=== PATIENT | female | born 1980 | race African-American/Black ===

== ENCOUNTER 2016-09-28 08:23 | Emergency (ER) | payer OTHER ==
[~2016-09-28 08:23] MED LIST: ONDA4TAB10 PO
--- NOTE | 2016-09-28 08:38 | EKG ---
[address] [address] Test Date: 2016-09-28 Test Time: 08:36:05 Pat Name: ALMA FRANCO Department: Room: Gender: F Rod Hanger: [place] : 1980 Requested By: MARIANA VASQUEZ Order Number: [id number] Reading MD: Measurements Intervals [place] Rate: 56 P: 62 NM: 140 QRS: 71 QRSD: 78 T: 66 QT: 396 QTc: 384 Interpretive Statements SINUS RHYTHM QRS(T) CONTOUR ABNORMALITY CONSIDER ANTEROLATERAL MYOCARDIAL DAMAGE POSSIBLY ABNORMAL ECG RI6.01 Unconfirmed report No previous ECG available for comparison
[2016-09-28 09:19] LABS: BASO % 1 % (0-3); EOS # 0.1 x10^3/uL (0.0-0.7); EOS % 1 % (0-3); HEMATOCRIT 28.3 % (36.0-47.0); HEMOGLOBIN 9.1 g/dL (12.0-15.5); LYMPH % 26 % (24-48); MEAN CORPUSCULAR HEMOGLOBIN 27 pg (25-35); MEAN CORPUSCULAR HGB CONC 32 g/dL (31-37); MEAN CORPUSCULAR VOLUME 85 fL (79-100); MONO % 13 % (0-9); NEUT # 4.6 x10^3uL (1.8-7.7); NEUT % 59 % (31-73); PLATELET COUNT 222 x10^3/uL (140-400); RED BLOOD COUNT 3.32 x10^6/uL (3.50-5.40); RED CELL DISTRIBUTION WIDTH 16.1 % (11.5-14.5); WHITE BLOOD COUNT 7.8 x10^3/uL (4.0-11.0)
--- NOTE | 2016-09-28 09:22 | ED.ADGEN ---
Past History Past Medical History: Other Past Surgical History: Other Alcohol Use: Rarely Drug Use: None Adult General HPI HPI Patient is a 35-year-old female presents emergency Department 1 week status post section. Currently nursing. She presents emergency department in certain that her resting heart rate is been in the 50s. She states that her resting heart rate is usually in the 70s and she is concerned that something may be wrong. She is tearful at the time of my interview. She denies any chest pain or shortness of air. The patient does report that she still has bilateral lower extremity swelling from her . She is to follow-up with her OB doctor next week but was called in today concerned about her heart stay referred her to the emergency department. Review of Systems Review of Systems Constitutional: Denies fever or chills [] Eyes: Denies change in visual acuity, redness, or eye pain [] HENT: Denies nasal congestion or sore throat [] Respiratory: Denies cough or shortness of breath [] Cardiovascular: No additional information not addressed in HPI [] GI: Denies abdominal pain, nausea, vomiting, bloody stools or diarrhea [] : Denies dysuria or hematuria [] Musculoskeletal: Denies back pain or joint pain [] Integument: Denies rash or skin lesions [] Neurologic: Denies headache, focal weakness or sensory changes [] Endocrine: Denies polyuria or polydipsia [] Allergies Allergies Allergies Coded Allergies Type Severity Reaction Last Updated Verified No Known Drug Allergies 05/08/16 No Physical Exam Physical Exam Constitutional: Well developed, well nourished, no acute distress, non-toxic appearance. [] HENT: Normocephalic, atraumatic, bilateral external ears normal, oropharynx moist, no oral exudates, nose normal. [] Eyes: PERRLA, EOMI, conjunctiva normal, no discharge. [] Neck: Normal range of motion, no tenderness, supple, no stridor. [] Cardiovascular:Heart rate regular rhythm, no murmur [] Lungs & Thorax: Bilateral breath sounds clear to auscultation [] Abdomen: Bowel sounds normal, soft, no tenderness, no masses, no pulsatile masses. [] Skin: Warm, dry, no erythema, no rash. [] Back: No tenderness, no CVA tenderness. [] Extremities: No tenderness, no cyanosis, no clubbing, ROM intact, no edema. [] Neurologic: Alert and oriented X 3, normal motor function, normal sensory function, no focal deficits noted. [] Psychologic: Affect normal, judgement normal, mood normal. [] Current Patient Data Vital Signs Vital Signs Date Time Temp Pulse Resp B/P Pulse Ox O2 Delivery O2 Flow Rate FiO2 09/28/16 10:11 159/100 09/28/16 10:07 57 18 100 Room Air 09/28/16 08:25 98.1 Lab Results Laboratory Tests Test 09/28/16 09:00 09/28/16 09:25 White Blood Count 7.8x10^3/uL (4.0-11.0) Red Blood Count 3.32x10^6/uL (3.50-5.40) L Hemoglobin 9.1g/dL (12.0-15.5) L Hematocrit 28.3% (36.0-47.0) L Mean Corpuscular Volume 85fL (79-100) Mean Corpuscular Hemoglobin 27pg (25-35) Mean Corpuscular Hemoglobin Concent 32g/dL (31-37) Red Cell Distribution Width 16.1% (11.5-14.5) H Platelet Count 222x10^3/uL (140-400) Neutrophils (%) (Auto) 59% (31-73) Lymphocytes (%) (Auto) 26% (24-48) Monocytes (%) (Auto) 13% (0-9) H Eosinophils (%) (Auto) 1% (0-3) Basophils (%) (Auto) 1% (0-3) Neutrophils # (Auto) 4.6x10^3uL (1.8-7.7) Lymphocytes # (Auto) 2.0x10^3/uL (1.0-4.8) Monocytes # (Auto) 1.0x10^3/uL (0.0-1.1) Eosinophils # (Auto) 0.1x10^3/uL (0.0-0.7) Basophils # (Auto) 0.0x10^3/uL (0.0-0.2) Sodium Level 140mmol/L (136-145) Potassium Level 4.1mmol/L (3.5-5.1) Chloride Level 105mmol/L (98-107) Carbon Dioxide Level 23mmol/L (21-32) Anion Gap 12 (6-14) Blood Urea Nitrogen 14mg/dL (7-20) Creatinine 0.9mg/dL (0.6-1.0) Estimated GFR (Cockcroft-Gault) 86.2 Glucose Level 75mg/dL (70-99) Calcium Level 8.8mg/dL (8.5-10.1) Aspartate Amino Transferase (AST) 26U/L (15-37) Alanine Aminotransferase (ALT) 32U/L (14-59) Alkaline Phosphatase 101U/L (46-116) Troponin I Quantitative < 0.017ng/mL (0-0.055) JQ-Ldg-M-Type Natriuretic Peptide 499pg/mL (0-124) H Urine Collection Type Unknown Urine Color Yellow Urine Clarity Clear Urine pH 7.0 Urine Specific Max 1.015 Urine Protein Trace (NEG-TRACE) Urine Glucose (UA) Negmg/dL (NEG) Urine Ketones (Stick) Tracemg/dL (NEG) Urine Blood Small (NEG) Urine Nitrite Neg (NEG) Urine Bilirubin Neg (NEG) Urine Urobilinogen Dipstick 0.2mg/dL (0.2 mg/dL) Urine Leukocyte Esterase Neg (NEG) Urine RBC Occ/HPF (0-2) Urine WBC Rare/HPF (0-4) Urine Squamous Epithelial Cells Few/LPF Urine Transitional Epithelial Cells Occ/LPF Urine Bacteria 0/HPF (0-FEW) Urine Mucus Slight/LPF EKG EKG EKG interpreted by me, normal sinus rhythm, 56 beats for minute, no ST segment elevation, normal axis. [] Radiology/Procedures Radiology/Procedures Indication palpitations. Recent . A single view of the chest was obtained. No prior imaging of the chest is available. Heart size is within normal limits. There is no gross congestive heart failure. A focal infiltrate in either lung is not seen. There is no pleural fluid or pneumothorax. Kelsey rods are noted. IMPRESSION: No acute or focal process seen in the chest DICTATED AND SIGNED BY: MJ PADRON MD DATE: 09/28/16 0926 CC: MARIANA VASQUEZ MD; JOSE MOISE MD ~[] Course & Med Decision Making Course & Med Decision Making Pertinent Labs and Imaging studies reviewed. (See chart for details) Patient has a reassuring workup. She continues to remain asymptomatic with no chest pain or dyspnea here in emergency department. She does seem quite stressed that her heart rate will sometimes drop below the 70s despite my reassurances. I have asked her to go ahead and contact her OB doctor and she was instructed earlier today and follow-up as directed. She will of course return emergency department sooner she develops new or worsening symptoms. [] Final Impression Final Impression Palpitations, bradycardia [] Problems: Dragon Disclaimer Dragon Disclaimer This electronic medical record was generated, in whole or in part, using a voice recognition dictation system. MARIANA VASQUEZ MD Sep 28, 2016 09:22
--- NOTE | 2016-09-28 09:29 | RAD ---
Indication palpitations. Recent . A single view of the chest was obtained. No prior imaging of the chest is available. Heart size is within normal limits. There is no gross congestive heart failure. A focal infiltrate in either lung is not seen. There is no pleural fluid or pneumothorax. Kelsey rods are noted. IMPRESSION: No acute or focal process seen in the chest
[2016-09-28 09:33] LABS: CALCIUM 8.8 mg/dL (8.5-10.1); CREATININE 0.9 mg/dL (0.6-1.0); GFR 86.2; POTASSIUM 4.1 mmol/L (3.5-5.1)
[2016-09-28 09:47] LABS: BACTERIA,URINE 0 /HPF (0-FEW); BILIRUBIN,URINE NEG (NEG); CLARITY,URINE CLEAR; COLOR,URINE YELLOW; GLUCOSE,URINE NEG (NEG); NITRITE,URINE NEG (NEG); RBC,URINE OCC /HPF (0-2); SQUAMOUS EPITHELIAL CELL,UR FEW /LPF; UROBILINOGEN,URINE 0.2 mg/dL (0.2 mg/dL); WBC,URINE RARE /HPF (0-4)
[2016-09-28 10:11] VITALS: BP 159/100
== END 2016-09-28 10:12 | disposition home or self-care (01) ==
LOC: ER 08:23
DX: O99.43 Diseases of the circulatory system complicating the puerperium (principal); R00.1 Bradycardia, unspecified; R00.2 Palpitations; R22.43 Localized swelling, mass and lump, lower limb, bilateral
CPT/HCPCS: 36415; 71010; 80048; 81001; 83880; 84075; 84450; 84460; 84484; 85027; 93005; 99285-25